=== PATIENT | male | born 1985 | race Caucasian/White ===

== ENCOUNTER 2016-10-09 12:32 | Emergency (ER) ==
[2016-10-09 13:03] LABS: MANUAL DIFF NEEDED? NO
[2016-10-09] MEDS ORDERED: NS 1,000 ML IV ONE (13:03)
[2016-10-09] MEDS ORDERED: PHENERGAN IM ONE (13:03)
[2016-10-09 13:05] LABS: BASO% 0.3 % (0.0-0.8); EOS# 0.06 X1000 (0.0-0.7); EOS% 0.5 % (0.0-10.0); HEMATOCRIT 46.5 % (42.0-52.0); HEMOGLOBIN 16.2 g/dL (14.0-18.0); IMM GRAN# 0.02 X1000 (0.0-0.04); IMM GRAN% 0.2 % (0.0-0.5); LYMPH# 1.83 X1000 (1.2-3.4); LYMPH% 16.6 % (20.5-51.1); MCH 30.2 PG (27-31); MCHC 34.8 g/dL (33-37); MCV 86.6 FL (81-99); MONO# 0.93 X1000 (0.11-0.59); MONO% 8.4 % (1.7-9.3); MPV 11.3 FL (7.4-10.4); PLT 273 X1000 (130-400); RBC 5.37 XMIL (4.7-6.1)
--- NOTE | 2016-10-09 13:08 | PROVIDER DOCUMENTATION ---
HPI-Abdominal Pain/GI Problem <NimoLala kelly - Last Filed: 10/09/16 13:48> - General Source: patient, family - History of Present Illness-ABD Nature of Presenting Problems: 31 y/o WM c/o N/V x 3 days. Pt states no fever/chills at home, denies diarrhea. States vomiting 50x today. States generalized abd. pain. Concerned about dehydration, as he injured kidneys the last time he had this problem. States can't keep any food or drink down. States bilat low back pain. Tried zofran at home. <Cierra Garcia - Last Filed: 10/12/16 20:30> - General Chief Complaint: Abdominal Pain Stated Complaint: ABD/KIDNEY PAIN Time Seen by Provider: 10/09/16 12:43 Allergies/Adverse Reactions: Patient Allergies Allergy/AdvReac Type Severity Reaction Status Date / Time No Known Allergies Allergy Verified 03/26/14 23:14 Home Medications: Home Medication List Medication Instructions Recorded Confirmed Last Taken Type Lisinopril 20 mg PO DAILY 03/20/14 03/26/14 03/20/14 14:00 History Lisinopril/Hydrochlorothiazide 1 each PO DAILY #30 tablet 03/27/14 Unknown Rx [Lisinopril-Hctz 10-12.5 mg Tab] Metoclopramide [Reglan] 10 mg PO 3-4XDAY PRN PRN #60 tablet 03/27/14 Unknown Rx Naproxen 500 mg PO BID PRN #60 tablet 03/27/14 Unknown Rx Ondansetron Odt [Zofran 8Mg Odt] 8 mg PO Q8H PRN PRN #20 tablet 10/09/16 Unknown Rx Polyethylene Glycol 3350 [Miralax] 17 gm PO DAILY #14 powd.pack 10/09/16 Unknown Rx Promethazine [Phenergan] 25 mg VT Q6H PRN PRN #14 supp 10/09/16 Unknown Rx Review of Systems - Adult - REVIEW OF SYSTEMS - ADULT Constitutional: reports: no symptoms reported. denies: chills, fever Eyes: reports: no symptoms reported. denies: blurred vision, double vision Ears, Nose, Mouth & Throat: reports: no symptoms reported. denies: ear pain, nose pain Cardiovascular: reports: no symptoms reported. denies: chest pain, palpitations Respiratory: reports: no symptoms reported. denies: dyspnea on exertion, shortness of breath Gastrointestinal: reports: see HPI, abdominal pain, nausea, vomiting. denies: constipation, diarrhea Genitourinary: reports: no symptoms reported. denies: dysuria, frequency, hematuria Musculoskeletal: reports: see HPI, back pain. denies: joint pain, joint swelling Integumentary: reports: no symptoms reported. denies: nail changes, rash Neurological: reports: no symptoms reported. denies: headache/migraines, numbness, paresthesia Psychiatric: reports: no symptoms reported Endocrine: reports: no symptoms reported. denies: cold intolerance, heat intolerance Hematologic/Lymphatic: reports: no symptoms reported. denies: easy bruising, prolonged bleeding Allergic/Immunologic: reports: no symptoms reported All Other Systems: Reviewed and Negative <Cierra Garcia - Last Filed: 10/12/16 20:30> Past History - Adult - PAST MEDICAL HISTORY-ADULT Review of Records: reports: Nursing Assessment Review, Medications Reviewed Major Childhood Illnesses: reports: denies history Cardiovascular: reports: HTN Respiratory: reports: denies history Gastrointestinal: reports: hepatitis (C) Obstetrical/Gynecological: reports: denies history Genitourinary: reports: denies history Musculoskeletal: reports: denies history Neurological: reports: denies history Endocrine/Immune: reports: denies history Other Conditions: reports: denies history - FAMILY HISTORY Family History: reviewed, not pertinent - SOCIAL HISTORY Smoking: cigarettes, less than 1 pack/day Provider spent 3-5 mins advising pt. on dangers of tobacco.: Discussed manners to quit use, and f/u contacts for add'l counseling. <Cierra Garcia - Last Filed: 10/12/16 20:30> Physical Exam-General - PHYSICAL EXAM-ADULT Initial Vital Signs Reviewed: Yes - CONSTITUTIONAL General Appearance: alert, mild distress - EYES Eyes: pink conjunctivae - HEAD, EARS, NOSE, MOUTH & THROAT HENMT: normocephalic/atraumatic, moist mucous membranes - NECK Neck: normal inspection - RESPIRATORY Respiratory: lungs clear, normal breath sounds. negative: crackles, rales, rhonchi, stridor, wheezing - CARDIOVASCULAR Cardiovascular: regular rate, rhythm. negative: bradycardia, tachycardia - GASTROINTESTINAL (ABDOMEN) Abdominal Exam: normal bowel sounds, soft, tenderness (generalized, worse in LUQ ). negative: distended, guarding, rigid, McBurney's point tenderness, Tse's sign - MUSCULOSKELETAL Back Exam: normal inspection, no CVA tenderness, other (TTP bilat low back) Extremity: normal gait - SKIN Integumentary: normal color, normal turgor, warm/dry - NEUROLOGIC Neurologic: negative: aphasia - PSYCHIATRIC Psych/Mental Status: normal mood/affect, normal thought content, normal thought process, oriented x 3 <Cierra Garcia - Last Filed: 10/12/16 20:30> Progress - XRAY 1 XRAY: Bilateral XRAY Study: Abdomen (flat/upright/ abd/1 view chest) Impression: Abnormal (constipation([place])) XRAY Interpretation: constipation ([place]) <Lala Suero - Last Filed: 10/09/16 13:48> - PLAN OF CARE/RESULTS Progress/Plan/Lab Results: Laboratory Tests 10/09/16 10/09/16 10/09/16 12:48 12:48 14:25 WBC 11.05 H RBC 5.37 Hgb 16.2 Hct 46.5 MCV 86.6 MCH 30.2 MCHC 34.8 RDW Std Deviation 13.4 Plt Count 273 MPV 11.3 H Immature Gran % (Auto) 0.2 Neut % (Auto) 74.0 Lymph % (Auto) 16.6 L [place] % (Auto) 8.4 Eos % (Auto) 0.5 Baso % (Auto) 0.3 Immature Gran # (Auto) 0.02 Neut # (Auto) 8.18 H Lymph # (Auto) 1.83 [place] # (Auto) 0.93 H Eos # (Auto) 0.06 Baso # (Auto) 0.03 Sodium 133 L Potassium 3.6 Chloride 88 L Carbon Dioxide 30 Anion Gap 15 BUN 30 H Creatinine 1.2 Estimated GFR/1.73 m2 > 60 BUN/Creatinine Ratio 25 Glucose 109 H Calculated Osmolality 273 Calcium 10.4 H Total Bilirubin 0.80 AST 50 H ALT 69 H Alkaline Phosphatase 89 Total Protein 9.1 H Albumin 5.0 Globulin 4.0 Albumin/Globulin Ratio 1.0 Amylase 46 Lipase 22 Urine Source CLEAN CATCH Urine Color YELLOW Urine Clarity CLEAR Urine pH 7.0 Ur Specific [place] 1.005 Urine Protein NEGATIVE Urine Ketones 2+(Moderate) A Urine Blood NEGATIVE Urine Nitrite NEGATIVE Urine Bilirubin NEGATIVE Urine Urobilinogen NORMAL Urine Microscopic RBC <10 Urine WBC NEGATIVE Urine Microscopic WBC <10 Ur Epithelial Cells <10 Urine Bacteria NEGATIVE Urine Glucose NEGATIVE Orders Category Date Time Status Saline Loc NOW Care 10/09/16 13:04 Active NPO Diet 10/09/16 12:47 Completed FLAT/UPRIGHT ABD/1 VIEW CHEST [RAD] Stat Exams 10/09/16 13:04 Completed AMYLASE [CHEM] Stat Lab 10/09/16 12:48 Completed CBC WITH ELECTRONIC DIFF [HEME] Stat Lab 10/09/16 12:48 Completed COMPREHENSIVE METABOLIC PANEL [CHEM] Stat Lab 10/09/16 12:48 Completed LIPASE [CHEM] Stat Lab 10/09/16 12:[address] W/POSS RFLX CULT [URINALYSIS] Stat Lab 10/09/16 14:25 Completed 0.9% Sodium Chloride Inj [Ns] 1,000 ml Med 10/09/16 13:03 Discontinued IV 999 mls/hr Promethazine [Phenergan] Med 10/09/16 13:03 Discontinued 25 mg IM NOW ONE Vital Signs Temp Pulse Pulse Pulse Pulse Resp BP 10/09/16 16:11 98.4 F 63 18 124/067 10/09/16 14:25 71 18 103/062 10/09/16 12:51 62 76 64 10/09/16 12:38 97.8 F 70 18 135/85 BP BP BP Pulse Ox 10/09/16 16:11 99 10/09/16 14:25 99 10/09/16 12:51 155/109 149/101 159/96 10/09/16 12:38 97 No Known Allergies Allergy (Verified 03/26/14 23:14) Lisinopril 20 mg PO DAILY 03/20/14 Lisinopril/Hydrochlorothiazide [Lisinopril-Hctz 10-12.5 mg Tab] 1 each PO DAILY #30 tablet 03/27/14 Metoclopramide [Reglan] 10 mg PO 3-4XDAY PRN PRN #60 tablet 03/27/14 Naproxen 500 mg PO BID PRN #60 tablet 03/27/14 Ondansetron Odt [Zofran 8Mg Odt] 8 mg PO Q8H PRN PRN #20 tablet 10/09/16 Polyethylene Glycol 3350 [Miralax] 17 gm PO DAILY #14 powd.pack 10/09/16 Promethazine [Phenergan] 25 mg VT Q6H PRN PRN #14 supp 10/09/16 UNSPECIFIED VIRAL HEPATITIS C WITHOUT HEPATIC COMA (10/09/16) VIRAL INFECTION, UNSPECIFIED (10/09/16) NICOTINE DEPENDENCE, CIGARETTES, UNCOMPLICATED (10/09/16) ESSENTIAL (PRIMARY) HYPERTENSION (10/09/16) CONSTIPATION, UNSPECIFIED (10/09/16) LOW BACK PAIN (10/09/16) GENERALIZED ABDOMINAL TENDERNESS (10/09/16) GENERALIZED ABDOMINAL PAIN (10/09/16) NAUSEA WITH VOMITING, UNSPECIFIED (10/09/16) TOBACCO ABUSE COUNSELING (10/09/16) OTHER GROUP HOME (CURRENT) DRUG THERAPY (10/09/16) Discussed pt with Dr. Nesbitt; he agreed with d/c plan after reviewing labwork and Xrays. <Cierra Garcia - Last Filed: 10/12/16 20:30> Departure <Lala Suero - Last Filed: 10/09/16 13:48> - Departure Time of Disposition Order: 15:33 Certified Medical Emergency: Emergent <Cierra Garcia - Last Filed: 10/12/16 20:30> - Departure DIAGNOSIS: Viral syndrome Constipation Qualifiers: Constipation type: unspecified constipation type Qualified Code(s): K59.00 - Constipation, unspecified Disposition: HOME 01 Condition: Stable Additional Instructions: Take medications as directed. Follow up with PCP as needed in 5-7 days. Drink plenty of fluids. ED Follow Up Instructions: You have been treated by a care provider in the Emergency Department. These instructions are being provided to you so you can have an understanding of how to care for yourself upon discharge. Upon discharge from the Emergency Department, you are responsible for making arrangements for follow-up care by a physician of your choice. Take all prescribed medications as directed. Return to the Emergency Department immediately for any new or worsening symptoms. You may call the Physician Referral phone number at [phone] to obtain a list of Physicians who are taking new patients. Prescriptions: Polyethylene Glycol 3350 [Miralax] 17 gm PO DAILY #14 powd.pack Promethazine [Phenergan] 25 mg VT Q6H PRN PRN #14 supp PRN Reason: Nausea Ondansetron Odt [Zofran 8Mg Odt] 8 mg PO Q8H PRN PRN #20 tablet PRN Reason: Nausea Referrals: Lillian Lott MD [STAFF PHYSICIAN] - Forms: Return to School/Parent Work Instructions: Ondansetron tablets, Viral Infections, [id number], Constipation , Adult, Promethazine tablets, Polyethylene Glycol powder Attestation - Physician/ JAZMYNE Attestation Patient care was provided by Advanced Practice Provider:: Yes Advanced Practice Provider:: Cierra Garcia Advanced Practice Provider documentation review:: The Mid-level provider documentation, treatment plan and medical decision making was reviewed by the physician who agrees with all treatment and medical decision making by the MLP. <Cierra Garcia - Last Filed: 10/12/16 20:30> Physician Attestation
--- NOTE | 2016-10-09 13:52 | Diag Imaging Result Document ---
PROCEDURE NAME: FLAT/UPRIGHT ABD/1 VIEW CHEST - 10/09/2016 FLAT AND UPRIGHT AND CHEST, 3 VIEWS: FINDINGS: The lungs are well expanded. No pneumonia. No cardiomegaly. No free air beneath the diaphragm. There is stool throughout the colon. The bowel loops are not dilated. No organomegaly. No abnormal abdominal or pelvic calcifications. IMPRESSION: Constipation.
[2016-10-09 13:59] LABS: AGAP 15; ALKALINE PHOSPHATASE 89 U/L (32-122); AMYLASE 46 U/L (20-200); BUN 30 mg/dL (8-22); CALCIUM 10.4 mg/dL (8.8-10.2); CHLORIDE 88 mmol/L (98-107); COSMO 273; GOT 50 U/L (10-34); GPT 69 U/L (10-44); LIPASE 22 U/L (13-60); POTASSIUM 3.6 mmol/L (3.5-5.1); SODIUM 133 mmol/L (136-145); TCO2 30 mmol/L (25-35); TOTAL PROTEIN 9.1 g/dL (6.3-8.3)
[2016-10-09 14:49] LABS: URINE CULTURE PL NEEDED? NO; URINE SOURCE CLEAN CATCH
[2016-10-09 14:59] LABS: BILIRUBIN URINE NEGATIVE (NEGATIVE); BLOOD URINE NEGATIVE (NEGATIVE); CLARITY CLEAR (CLEAR); COLOR YELLOW; GLUCOSE URINE NEGATIVE (NEGATIVE); LEUKOCYTES URINE NEGATIVE (NEGATIVE); NITRITE URINE NEGATIVE (NEGATIVE); PROTEIN URINE NEGATIVE (NEGATIVE); SP GRAVITY URINE 1.005; UROBILINOGEN URINE NORMAL
[2016-10-09 15:17] LABS: URINE EPITHELIAL CELLS <10 /HPF (<10); URINE RBC <10 /HPF (<10); URINE WBC <10 /HPF (<10)
[2016-10-09 16:12] VITALS: BP 124/067
== END 2016-10-09 16:12 | disposition home or self-care (01) ==
LOC: P.ED 12:32
DX: B34.9 Viral infection, unspecified (principal); K59.00 Constipation, unspecified; R11.2 Nausea with vomiting, unspecified; R10.84 Generalized abdominal pain; M54.5 Low back pain; R10.817 Generalized abdominal tenderness; I10 Essential (primary) hypertension; B19.20 Unspecified viral hepatitis C without hepatic coma; F17.210 Nicotine dependence, cigarettes, uncomplicated; Z79.899 Other long term (current) drug therapy; Z71.6 Tobacco abuse counseling
CPT/HCPCS: 74022; 80053; 81001; 82150; 83690; 85025; 96360; 96372; J2550; J7030